=== PATIENT | female | born 1960 | race Caucasian/White ===

== ENCOUNTER 2025-02-06 19:20 | Emergency (ER) | payer MEDICARE, SELFPAY ==
[2025-02-06 19:27] VITALS: BP 166/95
--- NOTE | 2025-02-06 21:09 | ED.GENMED ---
History of Present Illness
General
Chief Complaint: Head Injury
Source: patient and spouse
Exam Limitations: none
Time Seen by Provider: 02/06/25 20:55
Nursing documentation reviewed up to this point in time: agreed with
History of Present Illness
History of Present Illness:
Note:
CHIEF COMPLAINT(S)
Head injury from falling off a rocking chair.
HISTORY OF PRESENT ILLNESS
The patient is a 64-year-old female who reports a fall from a rocking chair resulting in a blow to the back of the head. The event occurred when the chair 'flipped backwards,' causing her to land on her buttocks, with the rocker striking her head.
She is on anticoagulation therapy with Eliquis due to a history of atrial flutter, which had an ablation performed in March and was replaced in April. No loss of consciousness, other injuries, or persistent symptoms such as headaches were
reported. She expressed concerns regarding potential intracranial bleeding given her anticoagulant use. The patient resumed walking today and has no fever or recent symptoms suggestive of infection, although she recently tested negative for COVID-19.
PAST MEDICAL AND SURGICAL HISTORY
Significant for atrial flutter with ablation therapy in the recent months of March and April.
MEDICATIONS
Eliquis (Apixaban)
PHYSICAL EXAM
General: Alert, no acute distress.
Skin: Warm, dry.
Head: Normocephalic, atraumatic.
Neck: Supple, trachea midline.
Eye, Ears, Nose, Mouth, and Throat: Oral mucosa moist.
Cardiovascular: Normal peripheral perfusion, No edema.
Respiratory: Respirations are non-labored.
Gastrointestinal: Abdomen nondistended.
Back: Normal range of motion, Normal alignment.
Musculoskeletal: Normal range of motion, normal strength.
Neurological: Alert and oriented to person, place, time, and situation, No focal neurological deficit observed.
Psychiatric: Cooperative, appropriate mood & affect.
PROBLEM LIST
Acute:
- Head injury due to fall.
Chronic:
- Atrial flutter, status post-ablation.
PLAN
- Monitor for any delayed symptoms of head injury such as headache, dizziness, or any neurological changes.
- Continue current anticoagulation with Eliquis.
- Discharge with instructions to seek immediate medical attention if any concerning symptoms develop.
DIFFERENTIAL DIAGNOSIS
The Differential Diagnosis includes, in no particular order and is not limited to:
- Post-traumatic headache
- Intracranial hemorrhage
- Subdural hematoma
- Subarachnoid hemorrhage
- Skull fracture
- Concussion
- Cervical spine injury
- Traumatic brain injury
- Scalp contusion
- Tension-type headache
CARE-UPDATE
02/06/25 - 21:09
CT head and cervical spine showed no fractures or intracranial hemorrhage. Noted degenerative changes in cervical spine and small cervical lymph nodes, likely reactive post-recent COVID infection.
Disposition:
SUMMARY OF ENCOUNTER
The patient, a 64-year-old female on anticoagulation with apixaban due to a history of atrial flutter, presented to the emergency department after a fall from a rocking chair, resulting in a head injury. The main concern was the risk of intracranial
hemorrhage due to her anticoagulant therapy. A physical examination showed no acute distress and no focal neurological deficits. Imaging, including a CT of the head and cervical spine, showed no fractures or intracranial hemorrhage, but noted
degenerative changes and small cervical lymph nodes, likely reactive post-recent COVID infection. The patient expressed feeling generally unwell but showed no signs of severe injury.
DISPOSITION
Discharge
ASSESSMENT
The patient experienced a head contusion due to the fall, but no signs of other significant injuries were found with the assessment.
PLAN
- Monitor for any delayed symptoms of a head injury such as headache, dizziness, or neurological changes.
- Provide discharge instructions with a focus on seeking immediate medical attention if concerning symptoms develop.
- Follow up with the primary care provider as needed for further assessment.
- Advise on fall precautions to prevent further injuries.
INDEPENDENT REVIEW OF LABS AND INTERPRETATION OF TESTS
My independent interpretation of the CT head and cervical spine indicates no fractures or intracranial hemorrhage. Degenerative changes in the cervical spine and small reactive cervical lymph nodes likely related to recent COVID-19.
PATIENT EDUCATION AND COUNSELING
The patient was advised on fall precautions and informed about the potential signs of delayed head injury symptoms requiring immediate medical attention.
FOLLOW-UP INSTRUCTIONS
The patient was advised to follow up with primary care as needed.
MEDICATION RECONCILIATION
Current medication is apixaban.
MEDICAL DECISION MAKING
-Chronic conditions affecting care include atrial flutter, status post-ablation. The differential diagnosis considered includes post-traumatic headache, intracranial hemorrhage, subdural hematoma, skull fracture, and concussion among others.
-Data:
Category 1
Non-emergency department records reviewed include outpatient pharmacy records noting apixaban prescription use.
Category 2
My independent interpretation of CT head and cervical spine showed no fractures or intracranial hemorrhage, but degenerative changes in the cervical spine with small cervical lymph nodes.
-Risk:
Consideration of Admission/Observation: Escalation of care including admission/observation was considered given the complexity and risk of the patients presenting complaint, exam findings, and underlying comorbidities. However, ultimately I feel the
patient is safe for outpatient management with close follow-up. Reasoning: Work-up is reassuring, it does not reveal any acute life-threatening processes, symptoms are well controlled on reevaluation, reexamination is reassuring, vitals are stable,
the patient is agreeable with discharge, and reliable for follow-up.
DIAGNOSIS
- Head contusion (S00.03XA)
- History of atrial flutter, status post-ablation (I48.92)
Phy Exam
Physical Exam
Physical Exam:
.
Course
Orders/Labs/Results
Orders:
Orders
02/06/25 19:30
CT Cervical Spine W/o Iv Contr Urgent
Comment:
Reason For Exam: injury
CT Head W/o Iv Contrast Urgent
Comment:
Reason For Exam: head injury on thinner
Vital Signs
Initial and Last Documented VS:
Initial Vital Signs
Temp Pulse Resp BP Pulse Ox
98 F 64 20 166/95 99
02/06/25 19:27 02/06/25 19:27 02/06/25 19:27 02/06/25 19:27 02/06/25 19:27
Last Documented Vital Signs
Temp Pulse Resp BP Pulse Ox
98 F 64 20 166/95 99
02/06/25 19:27 02/06/25 19:27 02/06/25 19:27 02/06/25 19:27 02/06/25 19:27
*Pulse Oximetry
SaO2: 99
Oxygen Mode of Delivery: Room air
Patient hypoxic: no
*Critical Care Note
Total Time (30-74mins, 75-104mins- exclusive of procedures): Not Applicable
ED Attending Note
-
Portions of this chart may have been created with voice recognition software.� Occasional wrong word or��sound alike� substitutions may have occurred due to the inherent limitations of voice recognition software.
Discharge Plan
Interventions
Interventions:
*General Assessment Last Done: 02/06/25 19:27
Discharge Date and Time
Print Language: MACEDONIAN
[2025-02-06 21:21] VITALS: BP 142/69
== END 2025-02-06 21:28 | disposition home or self-care (01) ==
LOC: EMR 19:20
PROVIDERS: EMERGENCY PHYSICIAN Emergency Medicine; FAMILY PHYSICIAN Family Medicine; REFERRING PHYSICIAN Internal Medicine Cardiovascular Disease
DX: S00.93XA Contusion of unspecified part of head, initial encounter (principal); I48.92 Unspecified atrial flutter; M47.812 Spondylosis without myelopathy or radiculopathy, cervical region; R59.0 Localized enlarged lymph nodes; Z79.01 Long term (current) use of anticoagulants; W07.XXXA Fall from chair, initial encounter; W20.8XXA Other cause of strike by thrown, projected or falling object, initial encounter
CPT/HCPCS: 99284; 70450; 72125